=== PATIENT | female | born 1945 | race Hispanic/Latino ===

== ENCOUNTER 2019-11-21 19:34 | Inpatient (IN) | payer MEDICARE ==
[~2019-11-21] VITALS: Ht 152.4 cm; Wt 80.7 kg
[2019-11-21] MEDS ORDERED: METHYLPREDNISOLONE SOD SUCC 125 MG/2ML VIAL IV STA (20:13)
[2019-11-21 20:52] LABS: BASOPHILS # (AUTO) 0.1 (0.0-0.1); BASOPHILS % 0.5 % (0.0-1.0); EOSINOPHILS # (AUTO) 0.4 (0.0-0.4); HEMATOCRIT 37.7 % (34.2-44.1); HEMOGLOBIN 12.6 g/dL (12.0-16.0); LYMPHOCYTES # (AUTO) 1.5 (1.0-3.2); LYMPHOCYTES % 15.2 % (18.0-39.1); MEAN CORPUSCULAR HEMOGLOBIN 30.5 pg (28-32); MEAN CORPUSCULAR HGB CONC 33.4 g/dL (31-35); MEAN CORPUSCULAR VOLUME 91.3 fL (81-99); MONOCYTES # (AUTO) 0.5 (0.2-0.8); MONOCYTES % 4.9 % (4.4-11.3); NEUTROPHILS # (AUTO) 7.2 (2.1-6.9); PLATELET COUNT 257 x10e3/uL (140-360); RED BLOOD COUNT 4.13 x10e6/uL (3.6-5.1); RED CELL DISTRIBUTION WIDTH 13.5 % (11.7-14.4)
[2019-11-21 21:12] LABS: ALANINE AMINOTRANSFERASE 11 IU/L (0-55); ALBUMIN 4.1 g/dL (3.5-5.0); ALBUMIN/GLOBULIN RATIO 1.3 (0.8-2.0); ALKALINE PHOSPHATASE 76 IU/L (40-150); ANION GAP 14.6 mmol/L (8-16); BLOOD UREA NITROGEN 8 mg/dL (7-26); BUN/CREATININE RATIO 10 (6-25); CARBON DIOXIDE 25 mmol/L (22-29); CHLORIDE 101 mmol/L (98-107); CREATINE KINASE 56 IU/L (29-168); CREATININE, SERUM 0.79 mg/dL (0.57-1.11); EST GLOMERULAR FILTRATION RATE > 60 ML/MIN (60-); GLUCOSE 130 mg/dL (74-118); POTASSIUM 3.6 mmol/L (3.5-5.1); SODIUM 137 mmol/L (136-145)
[2019-11-21 21:15] LABS: B-TYPE NATRIURETIC PEPTIDE2 16.2 pg/mL (0-100)
[2019-11-21 21:19] LABS: ABG PH 7.39 (7.35-7.45)
[2019-11-21 21:20] LABS: ABG HCO3 26 mmol/L (22-26); ABG PCO2 43 mmHg (35-45); ABG PO2 73 mmHg (80-105); ABG TCO2 27
[2019-11-21] MEDS ORDERED: SODIUM CHLORIDE 0.9% 50ML 50 ML ONE (21:54)
[2019-11-21] MEDS ORDERED: IOPAMIDOL 370 MG/ML 200 ML INFUS..BTL INJ ONE (21:54)
[2019-11-21] MEDS ORDERED: ALBUTEROL/IPRATROPIUM 3 ML NEB NEB STA ×2 (22:31→23:38)
[2019-11-22] VITALS (7 sets, daily range): BP systolic 112–136; BP diastolic 72–81
[2019-11-22] MEDS ORDERED: ALBUTEROL/IPRATROPIUM 3 ML NEB NEB STA (00:29)
[2019-11-22] MEDS ORDERED: PSEUDOEPHEDRINE HCL 30 MG TAB PO ONE (01:30)
[2019-11-22] MEDS ORDERED: LOSARTAN POTAS100 MG PO (04:38)
[2019-11-22] MEDS ORDERED: METFORMIN HCL500 MG PO (04:38)
[2019-11-22] MEDS ORDERED: ATORVASTATIN CA10 MG PO (04:38)
[2019-11-22] MEDS: METHYLPREDNISOLONE SOD SUCC 40 MG/ML VIAL 1ML IV SCH ×5 (05:55→23:32)
[2019-11-22] MEDS ORDERED: DOCUSATE SODIUM 100 MG CAP PO PRN (06:45)
[2019-11-22] MEDS ORDERED: DEXTROSE 50% SYRINGE 50 ML IV PRN (06:45)
[2019-11-22] MEDS ORDERED: ACETAMINOPHEN 325 MG TAB PO PRN (06:45)
[2019-11-22] MEDS ORDERED: GUAIFENESIN/DEXTROMETHORPHAN LIQD 5 ML UDC NG PRN (06:45)
[2019-11-22] MEDS ORDERED: ONDANSETRON HCL INJ 2MG/ML 2ML 2 MG/ML VIAL IV PRN (06:45)
[2019-11-22] MEDS ORDERED: ZOLPIDEM TARTRATE 5 MG TAB PO PRN (06:45)
[2019-11-22] MEDS: ALBUTEROL/IPRATROPIUM 3 ML NEB NEB PRN ×3 (07:45→14:00)
[2019-11-22] MEDS: INSULIN REGULAR, HUMAN 100 UNIT/1 ML 3ML VIAL SQ SCH ×4 (07:51→21:00)
[2019-11-22 08:06] LABS: BASOPHILS % 0.2 % (0.0-1.0); HEMATOCRIT 38.4 % (34.2-44.1); HEMOGLOBIN 12.9 g/dL (12.0-16.0); LYMPHOCYTES # (AUTO) 0.8 (1.0-3.2); LYMPHOCYTES % 16.9 % (18.0-39.1); MEAN CORPUSCULAR HEMOGLOBIN 30.1 pg (28-32); MEAN CORPUSCULAR HGB CONC 33.6 g/dL (31-35); MEAN CORPUSCULAR VOLUME 89.7 fL (81-99); MONOCYTES % 0.6 % (4.4-11.3); NEUTROPHILS # (AUTO) 3.9 (2.1-6.9); NEUTROPHILS % 81.9 % (38.7-80.0); PLATELET COUNT 248 x10e3/uL (140-360); RED BLOOD COUNT 4.28 x10e6/uL (3.6-5.1); RED CELL DISTRIBUTION WIDTH 13.4 % (11.7-14.4)
[2019-11-22 08:20] LABS: CHOL/HDL RATIO 2.9 (3.0-3.6)
[2019-11-22 08:42] LABS: ALANINE AMINOTRANSFERASE 11 IU/L (0-55); ALBUMIN/GLOBULIN RATIO 1.3 (0.8-2.0); ALKALINE PHOSPHATASE 72 IU/L (40-150); ANION GAP 12.9 mmol/L (8-16); BLOOD UREA NITROGEN 10 mg/dL (7-26); BUN/CREATININE RATIO 13 (6-25); CALCIUM 10.1 mg/dL (8.4-10.2); CARBON DIOXIDE 24 mmol/L (22-29); CHLORIDE 104 mmol/L (98-107); CREATININE, SERUM 0.78 mg/dL (0.57-1.11); EST GLOMERULAR FILTRATION RATE > 60 ML/MIN (60-); GLUCOSE 186 mg/dL (74-118); POTASSIUM 3.9 mmol/L (3.5-5.1); SODIUM 137 mmol/L (136-145)
[2019-11-22 08:50] LABS: CREATINE KINASE MB 1.6 ng/mL (0-5.0)
[2019-11-22] MEDS: FAMOTIDINE 20 MG TAB PO SCH ×2 (08:50→16:55)
[2019-11-22] MEDS: BENZONATATE 100 MG CAP PO SCH ×3 (08:50→21:00)
[2019-11-22] MEDS: LOSARTAN POTASSIUM 100 MG TAB PO SCH (08:50)
[2019-11-22] MEDS: LORATADINE 10 MG TAB PO SCH (08:50)
[2019-11-22] MEDS: DOXYCYCLINE 100MG/NS 100ML 100 ML IV SCH ×2 (09:35→20:30)
[2019-11-22] MEDS ORDERED: SODIUM CHLORIDE 0.9% 250ML 250 ML ONE (11:46)
[2019-11-22 16:39] LABS: CREATINE KINASE MB 2.9 ng/mL (0-5.0)
[2019-11-22] MEDS: ALBUTEROL/IPRATROPIUM 3 ML NEB NEB SCH ×2 (18:10→23:35)
[2019-11-22] MEDS ORDERED: LORAZEPAM 0.5 MG TAB PO ONE (19:30)
[2019-11-22] MEDS ORDERED: SOMA350 MG PO (19:38)
[2019-11-22] MEDS: ATORVASTATIN 10 MG TAB PO SCH (21:00)
[2019-11-22] MEDS: MONTELUKAST SODIUM 10 MG TAB PO SCH (21:00)
[2019-11-23] VITALS (8 sets, daily range): BP systolic 109–167; BP diastolic 52–79
[2019-11-23 00:10] LABS: ABG HCO3 23 mmol/L (22-26); ABG PCO2 33 mmHg (35-45); ABG PH 7.44 (7.35-7.45); ABG PO2 75 mmHg (80-105); ABG TCO2 24
[2019-11-23 04:12] LABS: ABG HCO3 23 mmol/L (22-26); ABG PCO2 33 mmHg (35-45); ABG PH 7.45 (7.35-7.45); ABG PO2 75 mmHg (80-105); ABG TCO2 24
[2019-11-23] MEDS: METHYLPREDNISOLONE SOD SUCC 40 MG/ML VIAL 1ML IV SCH ×4 (06:11→23:46)
[2019-11-23] MEDS: LORATADINE 10 MG TAB PO SCH (09:10)
[2019-11-23] MEDS: FAMOTIDINE 20 MG TAB PO SCH ×2 (09:10→16:29)
[2019-11-23] MEDS: DOXYCYCLINE 100MG/NS 100ML 100 ML IV SCH ×2 (09:10→20:53)
[2019-11-23] MEDS: BENZONATATE 100 MG CAP PO SCH ×3 (09:11→20:53)
[2019-11-23] MEDS: LOSARTAN POTASSIUM 100 MG TAB PO SCH (09:11)
[2019-11-23] MEDS: INSULIN REGULAR, HUMAN 100 UNIT/1 ML 3ML VIAL SQ SCH ×4 (09:15→20:56)
[2019-11-23] MEDS: ALBUTEROL/IPRATROPIUM 3 ML NEB NEB SCH ×2 (13:00→20:20)
[2019-11-23] MEDS: MONTELUKAST SODIUM 10 MG TAB PO SCH (20:53)
[2019-11-23] MEDS: BUSPIRONE HCL 5 MG TAB PO SCH (20:53)
[2019-11-23] MEDS: ATORVASTATIN 10 MG TAB PO SCH (20:53)
[2019-11-24 03:00] VITALS: BP 139/64
[2019-11-24] MEDS: ALBUTEROL/IPRATROPIUM 3 ML NEB NEB SCH ×3 (03:00→13:15)
[2019-11-24] MEDS: METHYLPREDNISOLONE SOD SUCC 40 MG/ML VIAL 1ML IV SCH (05:12)
[2019-11-24 08:00] VITALS: BP 122/74
[2019-11-24 08:20] LABS: BASOPHILS % 0.1 % (0.0-1.0); HEMATOCRIT 37.8 % (34.2-44.1); HEMOGLOBIN 12.2 g/dL (12.0-16.0); LYMPHOCYTES % 9.7 % (18.0-39.1); MEAN CORPUSCULAR HEMOGLOBIN 30.2 pg (28-32); MEAN CORPUSCULAR HGB CONC 32.3 g/dL (31-35); MEAN CORPUSCULAR VOLUME 93.6 fL (81-99); MONOCYTES # (AUTO) 0.3 (0.2-0.8); MONOCYTES % 3.1 % (4.4-11.3); NEUTROPHILS # (AUTO) 9.3 (2.1-6.9); NEUTROPHILS % 86.5 % (38.7-80.0); PLATELET COUNT 269 x10e3/uL (140-360); RED BLOOD COUNT 4.04 x10e6/uL (3.6-5.1); RED CELL DISTRIBUTION WIDTH 13.6 % (11.7-14.4)
[2019-11-24 08:34] LABS: ALANINE AMINOTRANSFERASE 13 IU/L (0-55); ALBUMIN/GLOBULIN RATIO 1.4 (0.8-2.0); ALKALINE PHOSPHATASE 63 IU/L (40-150); ANION GAP 15.8 mmol/L (8-16); BLOOD UREA NITROGEN 23 mg/dL (7-26); BUN/CREATININE RATIO 29 (6-25); CALCIUM 9.9 mg/dL (8.4-10.2); CARBON DIOXIDE 23 mmol/L (22-29); CHLORIDE 103 mmol/L (98-107); EST GLOMERULAR FILTRATION RATE > 60 ML/MIN (60-); GLUCOSE 151 mg/dL (74-118); POTASSIUM 3.8 mmol/L (3.5-5.1); SODIUM 138 mmol/L (136-145)
[2019-11-24] MEDS: INSULIN REGULAR, HUMAN 100 UNIT/1 ML 3ML VIAL SQ SCH ×3 (08:47→16:15)
[2019-11-24] MEDS: FAMOTIDINE 20 MG TAB PO SCH ×2 (10:18→16:15)
[2019-11-24] MEDS: LORATADINE 10 MG TAB PO SCH (10:18)
[2019-11-24] MEDS: DOXYCYCLINE 100MG/NS 100ML 100 ML IV SCH (10:18)
[2019-11-24] MEDS: BUSPIRONE HCL 5 MG TAB PO SCH ×2 (10:18→16:16)
[2019-11-24] MEDS: BENZONATATE 100 MG CAP PO SCH ×2 (10:19→16:15)
[2019-11-24] MEDS: LOSARTAN POTASSIUM 100 MG TAB PO SCH (10:19)
[2019-11-24 11:25] VITALS: BP 130/75
[2019-11-24 12:00] VITALS: BP 130/80
[2019-11-24] MEDS ORDERED: ACETYLCYSTEINE 200 MG/ML 4ML VIAL INH SCH (13:00)
[2019-11-24] MEDS ORDERED: METHYLPREDNISOLONE SOD SUCC 40 MG/ML VIAL 1ML IV SCH (14:00)
[2019-11-24 16:00] VITALS: BP 137/80
[2019-11-24] MEDS ORDERED: ONDANSETRON HCL 4 MG ORAL DISINTEGRATING TAB PO PRN (18:15)
[2019-11-24] MEDS ORDERED: BUDESONIDE 0.5MG/2 ML NEB INH SCH (19:00)
== END 2019-11-24 18:21 | disposition home or self-care (01) | DRG 202 ==
LOC: ER 19:46 → ERHOLD 11-22 00:51 → MED/SURG3 11-22 01:48 → IMCU 11-22 22:23 → OBSVTOIN 11-23 07:31
PROVIDERS: ADMIT Internal Medicine; ATTEND Internal Medicine
DX: J45.901 Unspecified asthma with (acute) exacerbation (principal); J96.01 Acute respiratory failure with hypoxia; Z11.59 Encounter for screening for other viral diseases; F41.9 Anxiety disorder, unspecified; I10 Essential (primary) hypertension; E78.5 Hyperlipidemia, unspecified; F41.1 Generalized anxiety disorder; E66.9 Obesity, unspecified; Z68.34 Body mass index [BMI] 34.0-34.9, adult; E11.9 Type 2 diabetes mellitus without complications
CPT/HCPCS: 36415; 36600; 71045; 71260; 80053; 80061; 82550; 82553; 82805; 82948; 83036; 83605; 83880; 84484; 85025; 87040; 93005; 94640; 97139; 99284; G0378; J1817; J2920; J2930; J7050; Q9967; U0002